=== PATIENT | female | born 1990 | race Caucasian/White ===

== ENCOUNTER 2019-01-09 04:14 | Inpatient (IN) | payer OTHER ==
[~2019-01-09] VITALS: Ht 152.4 cm; Wt 82.6 kg
[2019-01-09] MEDS ORDERED: LIDOCAINE HCL 1% 20ML VIAL (Pyxis) INJ INFIL SCH (05:00)
[2019-01-09] MEDS ORDERED: CARBOPROST TROMETHAMINE 250 MCG/ML AMPUL IM PRN (05:00)
[2019-01-09] MEDS ORDERED: BUTORPHANOL TARTRATE 2 MG/ML VIAL IV PRN (05:00)
[2019-01-09] MEDS ORDERED: METHYLERGONOVINE MALEATE 0.2 MG/ML IM PRN (05:00)
[2019-01-09] MEDS ORDERED: MAGNESIUM 4 G PREMIX 100 ML IV NR (05:00)
[2019-01-09] MEDS ORDERED: NALOXONE HCL 0.4 MG/ML 1ML VIAL IM PRN (05:00)
[2019-01-09] MEDS ORDERED: PENICILLIN G POTASSIUM 5 MMU in DEXT 5% WATER 100 ML IV SCH (05:30)
[2019-01-09] MEDS: LACTATED RINGERS 1,000 ML IV SCH ×2 (05:33→06:46)
[2019-01-09 05:49] LABS: BASOPHILS % 0.5 % (0.0-2.0); EOSINOPHILS % 1.3 % (0.0-5.0); HEMATOCRIT. 28.1 % (36.0-48.0); MEAN CORPUSCULAR HEMOGLOBIN 23.3 pg (28.0-32.0); MEAN CORPUSCULAR VOLUME 73.1 fL (81.0-99.0); MEAN PLATELET VOLUME 8.4 fl (7.4-10.4); MONOCYTES % 7.8 % (2.0-8.0); NEUTROPHILS % 55.4 % (40.0-76.0); PLATELET 197 x1000/uL (130-400); RED BLOOD CELL COUNT 3.85 mill/uL (4.2-5.4); RED CELL DISTRIBUTION WIDTH 15.7 % (11.6-14.6)
[2019-01-09 05:58] LABS: INR 0.9; PARTIAL THROMBOPLASTIN TIME 29.3 sec (23.4-31.0); PROTHROMBIN TIME 9.5 sec (9.1-11.1)
[2019-01-09] MEDS ORDERED: ROPIVACAINE HCL/PF EPIDURAL 200 ML EP SCH (06:30)
[2019-01-09] MEDS: MAGNESIUM 20 G PREMIX (L & D) 500 ML IV SCH (06:31)
[2019-01-09] MEDS ORDERED: MAGNESIUM 20 G PREMIX (L & D) 500 ML IV ONE (06:32)
[2019-01-09 07:14] LABS: CHLORIDE 110 mEq/L (98-107)
[2019-01-09] MEDS ORDERED: LABETALOL 5MG/ML SYR 20 MG/4 ML SYRINGE IV NR (07:15)
[2019-01-09] MEDS ORDERED: PNV1TABL50 MT (07:38)
[2019-01-09] MEDS ORDERED: PENICILLIN G POTASSIUM 2.5 MMU in DEXTROSE 5% WATER 50 ML IV SCH (10:00)
[2019-01-09] MEDS ORDERED: LIDOCAINE HCL/PF 1% 10 MG/ML 5ML VIAL ONE (12:34)
[2019-01-09] MEDS ORDERED: FENTANYL CITRATE/PF 50MCG/ML 2ML VIAL ONE (12:34)
[2019-01-09] MEDS ORDERED: BENZOCAINE/LANOLIN/ALOE VERA SPRAY TOP PRN (13:45)
[2019-01-09] MEDS ORDERED: LANOLIN OINT 0.25 GM TUBE TOP PRN (13:45)
[2019-01-09] MEDS: DEXT 5%/LR + PITOCIN 20UNITS/L 1,000 ML IV SCH ×2 (14:50→17:03)
[2019-01-09] MEDS: IBUPROFEN 400MG TABLET PO PRN (16:16)
[2019-01-09 19:30] VITALS: BP 141/89
[2019-01-09 21:00] VITALS: BP 117/77
[2019-01-09] MEDS: LABETALOL HCL 200MG TABLET PO SCH (21:07)
[2019-01-09] MEDS: DOCUSATE SODIUM 100MG CAPSULE PO SCH (21:07)
[2019-01-10 00:21] VITALS: BP 114/67
[2019-01-10] MEDS: IBUPROFEN 400MG TABLET PO PRN (00:21)
[2019-01-10] MEDS: LACTATED RINGERS 1,000 ML IV SCH (02:27)
[2019-01-10] MEDS: MAGNESIUM 20 G PREMIX (L & D) 500 ML IV SCH (04:49)
[2019-01-10 06:30] LABS: BASOPHILS % 0.2 % (0.0-2.0); EOSINOPHILS % 0.4 % (0.0-5.0); HEMATOCRIT. 23.3 % (36.0-48.0); HEMOGLOBIN. 7.4 g/dL (12.0-16.0); MEAN CORPUSCULAR HEMOGLOBIN 23.5 pg (28.0-32.0); MEAN CORPUSCULAR VOLUME 73.6 fL (81.0-99.0); MEAN PLATELET VOLUME 8.1 fl (7.4-10.4); MONOCYTES % 6.6 % (2.0-8.0); NEUTROPHILS % 73.8 % (40.0-76.0); PLATELET 187 x1000/uL (130-400); RED BLOOD CELL COUNT 3.17 mill/uL (4.2-5.4); RED CELL DISTRIBUTION WIDTH 15.6 % (11.6-14.6)
[2019-01-10 07:31] VITALS: BP 109/66
[2019-01-10] MEDS: PRENATAL VIT/FE FUMARATE/FA TABLET PO SCH (08:18)
[2019-01-10] MEDS: IBUPROFEN 800MG TABLET PO PRN ×3 (08:19→22:47)
[2019-01-10] MEDS: LABETALOL HCL 200MG TABLET PO SCH ×2 (08:19→22:46)
[2019-01-10 15:34] VITALS: BP 115/77
[2019-01-10 19:30] VITALS: BP 115/73
[2019-01-10 22:35] VITALS: BP 108/70
[2019-01-10] MEDS: DOCUSATE SODIUM 100MG CAPSULE PO SCH (22:45)
[2019-01-10] MEDS ORDERED: TETANUS, DIPHTHERIA, PERTUSSIS VAC/PF 0.5ML (>7YR OLD) IM ONE (23:00)
[2019-01-11 01:36] VITALS: BP 116/72
[2019-01-11 09:00] VITALS: BP 127/77
[2019-01-11] MEDS: LABETALOL HCL 200MG TABLET PO SCH (09:00)
[2019-01-11] MEDS: PRENATAL VIT/FE FUMARATE/FA TABLET PO SCH (09:00)
[2019-01-11] MEDS: IBUPROFEN 400MG TABLET PO PRN (11:57)
== END 2019-01-11 13:00 | disposition home or self-care (01) | DRG 807 ==
LOC: 8EST NSY 04:14 → OBSVTOIN 04:14 → UNDOADMOB 04:14 → 8 EST LDRP 04:48 → 8EST 17:05
PROVIDERS: ADMIT Obstetrics & Gynecology Obstetrics; ATTEND Obstetrics & Gynecology Obstetrics
PROC: 10E0XZZ Delivery of Products of Conception, External Approach (ICD-10-PCS; principal; 2019-01-11)
PROC: 3E0R3BZ Introduction of Anesthetic Agent into Spinal Canal, Percutaneous Approach (ICD-10-PCS; 2019-01-11)
PROC: 00HU33Z Insertion of Infusion Device into Spinal Canal, Percutaneous Approach (ICD-10-PCS; 2019-01-11)
DX: O13.4 Gestational [pregnancy-induced] hypertension without significant proteinuria, complicating childbirth (principal); Z37.0 Single live birth; O69.1XX0 Labor and delivery complicated by cord around neck, with compression, not applicable or unspecified; Z3A.39 39 weeks gestation of pregnancy
CPT/HCPCS: 36415; 83735; 84550; 85384; 86592; 86850; 86900; 87340; 90715; G0378; J0595; J2540; J2590; J2795; J3010; J3475; J3490; J7060; J7120; A4315